=== PATIENT | male | born 1935 | race Caucasian/White ===

== ENCOUNTER 2017-10-12 02:34 | Inpatient (IN) | payer MEDICARE, OTHER ==
[~2017-10-12] VITALS: Ht 172.7 cm; Wt 120.0 kg
[~2017-10-12 02:34] MED LIST: CARB1CAP5 PO; ENTA200T5 PO; MELO-100 PO; MINE133E25 RC; RASA1TAB PO; SIMV10TA6 PO; SULF1TAB48 PO; SULF1TAB49 PO
[2017-10-12] MEDS ORDERED: MIRA50TA PO (03:05)
[2017-10-12] MEDS ORDERED: HYDR25TA4 PO (03:05)
[2017-10-12] MEDS ORDERED: METO-467 PO (03:05)
[2017-10-12] MEDS ORDERED: GABA600T2 PO (03:05)
[2017-10-12] MEDS ORDERED: CARB1CAP5 (03:05)
[2017-10-12] MEDS ORDERED: ENTA200T23 PO (03:05)
[2017-10-12] MEDS ORDERED: DICL50TA6 PO (03:05)
[2017-10-12] MEDS ORDERED: HYDR-3964 PO (03:05)
[2017-10-12] MEDS ORDERED: BACL10TA PO (03:05)
[2017-10-12 03:33] LABS: PROTHROMBIN TIME 10.1 SECONDS (9.0-12.0)
[2017-10-12 03:35] LABS: CLARITY,URINE SLIGHTLY CLOUDY (Clear); GLUCOSE, URINE NEGATIVE (Neg); KETONES,URINE 15 mg/dl (Neg); LEUKOCYTE ESTERASE ,URINE TRACE (Neg); NITRITES, URINE POSITIVE (Neg); OCCULT BLOOD,URINE NEGATIVE (Neg); PH,URINE 5.5 (4.8-8.0); PROTEIN,URINE 100 mg/dl (Neg); UROBILINOGEN,URINE 0.2 E.U/dL (0.2-1.0)
[2017-10-12 03:43] LABS: COLOR,URINE BROWN (Yellow); UA COLLECTION TYPE VOIDED
[2017-10-12 03:47] LABS: ALANINE AMINOTRANSFERASE 9 U/L (12-78); ALBUMIN 3.7 G/DL (3.4-5.0); ALBUMIN/GLOBULIN RATIO 0.9 (1.1-1.5); ALKALINE PHOSPHATASE 82 IU/L (46-116); ANION GAP 10 (8-16); ASPARTATE AMINO TRANSFERASE 20 U/L (10-37); BILIRUBIN,TOTAL 0.4 MG/DL (0.1-1.0); BLOOD UREA NITROGEN 33 MG/DL (7-18); CALCIUM 8.8 MG/DL (8.5-10.1); CHLORIDE 102 MMOL/L (99-107); CREATININE 1.65 MG/DL (0.60-1.10); GLUCOSE 120 MG/DL (70-104); POTASSIUM 3.7 MMOL/L (3.5-5.1); SODIUM 140 MMOL/L (135-145); TOTAL CARBON DIOXIDE 27.9 MMOL/L (24-32); TOTAL PROTEIN 7.7 G/DL (6.4-8.2); eGFR 40 ML/MIN
[2017-10-12 03:49] LABS: BASOPHILS % (AUTO) 0 % (0-1); EOSINOPHILS % (AUTO) 0.2 % (0-6); HEMATOCRIT 35.5 % (42.0-52.0); HEMOGLOBIN 11.7 g/dl (14.0-17.9); LYMPHOCYTES # (AUTO) 1.1 X10'3 (1.1-4.8); LYMPHOCYTES % (AUTO) 7.2 % (21-51); MEAN CORPUSCULAR HEMOGLOBIN 30.5 PG (27.0-31.0); MEAN CORPUSCULAR HGB CONC 32.8 % (33.0-36.5); MEAN CORPUSCULAR VOLUME 93.1 FL (78-98); MEAN PLATELET VOLUME 9.6 FL (7.4-10.4); MONOCYTES # (AUTO) 0.7 X10'3 (0-0.9); NEUTROPHILS # (AUTO) 13.2 X10'3 (1.8-7.7); NEUTROPHILS % (AUTO) 87.6 % (42-75); PLATELET COUNT 320 X10'3 (140-440); RED BLOOD COUNT 3.82 X10'6 (4.70-6.10); RED CELL DISTRIBUTION WIDTH 14.1 % (11.5-14.5)
[2017-10-12 04:21] LABS: BACTERIA,URINE 4+ /HPF (Neg); RBC,URINE 0-2 /HPF (0-2); SQUAMOUS EPITHELIAL CELL,UR FEW /LPF (FEW); WBC CLUMPS,URINE FEW /HPF (NEGATIVE)
[2017-10-12] MEDS ORDERED: morphine 4 MG/ML inj SYRINge IV PRN ×2 (05:55)
[2017-10-12] MEDS ORDERED: acetaminophen 325mg tablet PO PRN (05:55)
[2017-10-12] MEDS ORDERED: ondansetron/PF 4mg/2ml inj IV PRN (05:55)
[2017-10-12] MEDS ORDERED: mag hydrox/Alum hydrox/simeth 30ml oral suspension PO PRN (05:55)
[2017-10-12] MEDS ORDERED: magnesium hydroxide 30ml (MOM) UD suspension PO PRN (05:55)
[2017-10-12] MEDS: normal saline 1000ml 1,000 ML IV SCH ×2 (06:51→20:18)
[2017-10-12] MEDS: CefTRIAXone/D5W-Rocephin 1gm 50 ML IV SCH ×2 (06:51→08:00)
[2017-10-12] MEDS: baclofen 10mg tablet PO SCH ×3 (07:39→20:09)
[2017-10-12 07:58] LABS: OCCULT BLOOD STOOL POSITIVE (Neg)
[2017-10-12] MEDS ORDERED: MIRABEGRON 50 MG PO SCH (08:00)
[2017-10-12] MEDS: HYDROcodone/acetaminophen 5mg/325mg tablet PO PRN ×2 (08:14→16:03)
[2017-10-12] MEDS: metoprolol tartrate 50mg tablet PO SCH ×2 (08:14→20:08)
[2017-10-12] MEDS: gabapentin 300mg capsule PO SCH ×2 (08:15→15:44)
[2017-10-12] MEDS: LEVODOPA PO SCH ×3 (09:46→21:21)
[2017-10-12] MEDS: CARBIDOPA PO SCH ×3 (09:46→21:21)
[2017-10-12] MEDS: RASAGILINE 1 MG PO SCH (09:47)
[2017-10-12 10:21] LABS: C DIFF SPECIMEN=DIARRHEA? ACCEPTABLE; C DIFFICILE TOXINS A&B POSITIVE (Neg)
[2017-10-12 10:22] LABS: C DIFF ANTIGEN POSITIVE (NEGATIVE); C DIFF TOXIN (LAMP) POSITIVE (NEG)
[2017-10-12] MEDS ORDERED: ampicillin inj 1 GM in normal saline 100ml IV soln 100 ML IV SCH (14:00)
[2017-10-12 15:30] VITALS: BP 195/81
[2017-10-12] MEDS ORDERED: amLODIPine 5mg tablet PO ONE (15:35)
[2017-10-12] MEDS ORDERED: ALPRAZolam 0.25mg tablet PO ONE (15:35)
[2017-10-12] MEDS: metroNIDAZOLE-Flagyl 500mg/NS 100 ML IV SCH (15:45)
[2017-10-12 18:00] VITALS: BP 138/94
[2017-10-12] MEDS: atorvastatin 10mg tablet PO SCH (20:08)
[2017-10-12 22:00] VITALS: BP 142/70
[2017-10-13] MEDS: metroNIDAZOLE-Flagyl 500mg/NS 100 ML IV SCH ×4 (00:02→23:38)
[2017-10-13] MEDS: gabapentin 300mg capsule PO SCH ×4 (00:02→23:38)
[2017-10-13] MEDS: normal saline 1000ml 1,000 ML IV SCH ×2 (01:54→09:27)
[2017-10-13 06:00] VITALS: BP 177/75
[2017-10-13 06:22] LABS: BASOPHILS # (AUTO) 0.1 X10'3 (0-0.2); BASOPHILS % (AUTO) 1.3 % (0-1); EOSINOPHILS # (AUTO) 0.3 X10'3 (0-0.9); EOSINOPHILS % (AUTO) 3.3 % (0-6); HEMATOCRIT 34.5 % (42.0-52.0); HEMOGLOBIN 11.7 g/dl (14.0-17.9); LYMPHOCYTES # (AUTO) 1.7 X10'3 (1.1-4.8); LYMPHOCYTES % (AUTO) 18.4 % (21-51); MEAN CORPUSCULAR HEMOGLOBIN 31.2 PG (27.0-31.0); MEAN CORPUSCULAR HGB CONC 33.8 % (33.0-36.5); MEAN PLATELET VOLUME 9.7 FL (7.4-10.4); MONOCYTES # (AUTO) 0.8 X10'3 (0-0.9); MONOCYTES % (AUTO) 8.4 % (2-12); NEUTROPHILS # (AUTO) 6.2 X10'3 (1.8-7.7); NEUTROPHILS % (AUTO) 68.6 % (42-75); PLATELET COUNT 284 X10'3 (140-440); RED BLOOD COUNT 3.75 X10'6 (4.70-6.10); RED CELL DISTRIBUTION WIDTH 14.7 % (11.5-14.5); WHITE BLOOD COUNT 9.1 X10'3 (4.5-11.0)
[2017-10-13 06:57] LABS: ALANINE AMINOTRANSFERASE 7 U/L (12-78); ALBUMIN 2.9 G/DL (3.4-5.0); ALBUMIN/GLOBULIN RATIO 0.8 (1.1-1.5); ALKALINE PHOSPHATASE 69 IU/L (46-116); ANION GAP 6 (8-16); ASPARTATE AMINO TRANSFERASE 19 U/L (10-37); BILIRUBIN,TOTAL 0.4 MG/DL (0.1-1.0); BLOOD UREA NITROGEN 22 MG/DL (7-18); BUN/CREATININE RATIO 19.6 (5.4-32.0); CALCIUM 8.8 MG/DL (8.5-10.1); CHLORIDE 107 MMOL/L (99-107); CREATININE 1.12 MG/DL (0.60-1.10); GLUCOSE 110 MG/DL (70-104); POTASSIUM 3.9 MMOL/L (3.5-5.1); SODIUM 142 MMOL/L (135-145); TOTAL CARBON DIOXIDE 29.2 MMOL/L (24-32); TOTAL PROTEIN 6.4 G/DL (6.4-8.2); eGFR 63 ML/MIN
[2017-10-13] MEDS: metoprolol tartrate 50mg tablet PO SCH ×2 (09:25→19:39)
[2017-10-13] MEDS: baclofen 10mg tablet PO SCH ×2 (09:25→19:38)
[2017-10-13] MEDS: CARBIDOPA PO SCH ×3 (09:25→21:04)
[2017-10-13] MEDS: LEVODOPA PO SCH ×3 (09:25→21:04)
[2017-10-13 10:00] VITALS: BP 156/83
[2017-10-13] MEDS ORDERED: MIRABEGRON 50 MG PO SCH (14:04)
[2017-10-13] MEDS: RASAGILINE 1 MG PO SCH (14:17)
[2017-10-13 14:33] LABS: HEMOGLOBIN A1C 6.5 % (4.5-6.2)
[2017-10-13 18:00] VITALS: BP 126/80
[2017-10-13] MEDS ORDERED: MIRABEGRON 25 MG PO SCH (21:00)
[2017-10-13] MEDS: ciprofloxacin 250mg tablet PO SCH (21:03)
[2017-10-13] MEDS: atorvastatin 10mg tablet PO SCH (21:03)
[2017-10-13 22:00] VITALS: BP 123/53
[2017-10-14] MEDS: normal saline 1000ml 1,000 ML IV SCH ×2 (01:30→07:10)
[2017-10-14] MEDS: HYDROcodone/acetaminophen 5mg/325mg tablet PO PRN (03:51)
[2017-10-14 06:21] LABS: BASOPHILS # (AUTO) 0.1 X10'3 (0-0.2); BASOPHILS % (AUTO) 0.8 % (0-1); EOSINOPHILS # (AUTO) 0.4 X10'3 (0-0.9); EOSINOPHILS % (AUTO) 3.9 % (0-6); HEMATOCRIT 31.6 % (42.0-52.0); HEMOGLOBIN 10.4 g/dl (14.0-17.9); LYMPHOCYTES # (AUTO) 1.3 X10'3 (1.1-4.8); LYMPHOCYTES % (AUTO) 12.6 % (21-51); MEAN CORPUSCULAR HGB CONC 32.9 % (33.0-36.5); MEAN CORPUSCULAR VOLUME 91.2 FL (78-98); MEAN PLATELET VOLUME 9.5 FL (7.4-10.4); MONOCYTES % (AUTO) 9.5 % (2-12); NEUTROPHILS # (AUTO) 7.3 X10'3 (1.8-7.7); NEUTROPHILS % (AUTO) 73.2 % (42-75); PLATELET COUNT 256 X10'3 (140-440); RED BLOOD COUNT 3.46 X10'6 (4.70-6.10); RED CELL DISTRIBUTION WIDTH 15.1 % (11.5-14.5)
[2017-10-14 06:52] VITALS: BP 137/54
[2017-10-14 06:54] LABS: ALANINE AMINOTRANSFERASE 8 U/L (12-78); ALBUMIN 2.8 G/DL (3.4-5.0); ALBUMIN/GLOBULIN RATIO 0.9 (1.1-1.5); ALKALINE PHOSPHATASE 66 IU/L (46-116); ANION GAP 8 (8-16); ASPARTATE AMINO TRANSFERASE 19 U/L (10-37); BILIRUBIN,TOTAL 0.5 MG/DL (0.1-1.0); BLOOD UREA NITROGEN 20 MG/DL (7-18); CALCIUM 8.5 MG/DL (8.5-10.1); CHLORIDE 105 MMOL/L (99-107); CREATININE 1.11 MG/DL (0.60-1.10); GLUCOSE 105 MG/DL (70-104); POTASSIUM 3.6 MMOL/L (3.5-5.1); SODIUM 139 MMOL/L (135-145); TOTAL CARBON DIOXIDE 26.1 MMOL/L (24-32); eGFR 63 ML/MIN
[2017-10-14] MEDS: metroNIDAZOLE-Flagyl 500mg/NS 100 ML IV SCH (07:19)
[2017-10-14] MEDS: gabapentin 300mg capsule PO SCH (07:20)
[2017-10-14] MEDS: baclofen 10mg tablet PO SCH (07:20)
[2017-10-14] MEDS: CARBIDOPA PO SCH (07:20)
[2017-10-14] MEDS: metoprolol tartrate 50mg tablet PO SCH (07:20)
[2017-10-14] MEDS: RASAGILINE 1 MG PO SCH (07:20)
[2017-10-14] MEDS: LEVODOPA PO SCH (07:20)
[2017-10-14] MEDS ORDERED: METR500T4 PO (09:03)
[2017-10-14] MEDS ORDERED: CIPR250T4 PO (09:03)
[2017-10-14] MEDS: ciprofloxacin 250mg tablet PO SCH (10:20)
[2017-10-14 11:31] VITALS: BP 112/77
[2017-10-14] MEDS ORDERED: AMOX-580 PO (15:35)
== END 2017-10-14 11:30 | disposition home or self-care (01) | DRG 871 ==
LOC: ER 02:34 → ED HOLD 05:54 → EDBEDREQ 13:43 → ORTHO 4S 15:03
PROVIDERS: ADMIT Internal Medicine; ATTEND Internal Medicine
DX: A41.9 Sepsis, unspecified organism (principal); G93.41 Metabolic encephalopathy; N17.9 Acute kidney failure, unspecified; A04.72 Enterocolitis due to Clostridium difficile, not specified as recurrent; N39.0 Urinary tract infection, site not specified; Z68.41 Body mass index [BMI] 40.0-44.9, adult; G20 Parkinson's disease; E11.9 Type 2 diabetes mellitus without complications; N40.0 Benign prostatic hyperplasia without lower urinary tract symptoms; F41.9 Anxiety disorder, unspecified; G89.29 Other chronic pain; M54.5 Low back pain; Z90.49 Acquired absence of other specified parts of digestive tract; Z79.899 Other long term (current) drug therapy; Z79.4 Long term (current) use of insulin
CPT/HCPCS: 36415; 80053; 81001; 82272; 82948; 83036; 85025; 85610; 87045; 87046; 87070; 87077; 87088; 87186; 87324; 87449; 87493; 89055; 97116; 97161; 97530; 99285; J0290; J0696; J3490; J7030

== ENCOUNTER 2017-10-28 17:56 | Emergency (ER) | payer MEDICARE, OTHER ==
[~2017-10-28] VITALS: Ht 172.7 cm; Wt 110.0 kg
[~2017-10-28 17:56] MED LIST changes: +AMOX-580 PO; +BACL10TA PO; +ENTA200T23 PO; -ENTA200T5 PO; +GABA600T2 PO; +HYDR-3964 PO; -MELO-100 PO; +METO-467 PO; -MINE133E25 RC; -SULF1TAB48 PO; -SULF1TAB49 PO
[2017-10-28 18:32] VITALS: BP 203/89
[2017-10-28 18:54] LABS: BASOPHILS # (AUTO) 0.1 X10'3 (0-0.2); BASOPHILS % (AUTO) 1.2 % (0-1); EOSINOPHILS # (AUTO) 0.2 X10'3 (0-0.9); EOSINOPHILS % (AUTO) 2.3 % (0-6); HEMATOCRIT 36.7 % (42.0-52.0); HEMOGLOBIN 12.2 g/dl (14.0-17.9); LYMPHOCYTES # (AUTO) 1.9 X10'3 (1.1-4.8); MEAN CORPUSCULAR HEMOGLOBIN 30.7 PG (27.0-31.0); MEAN CORPUSCULAR HGB CONC 33.2 % (33.0-36.5); MEAN CORPUSCULAR VOLUME 92.4 FL (78-98); MONOCYTES # (AUTO) 0.9 X10'3 (0-0.9); MONOCYTES % (AUTO) 10.4 % (2-12); NEUTROPHILS # (AUTO) 5.5 X10'3 (1.8-7.7); NEUTROPHILS % (AUTO) 64.1 % (42-75); PLATELET COUNT 352 X10'3 (140-440); RED BLOOD COUNT 3.97 X10'6 (4.70-6.10); RED CELL DISTRIBUTION WIDTH 16.5 % (11.5-14.5); WHITE BLOOD COUNT 8.6 X10'3 (4.5-11.0)
[2017-10-28 19:02] LABS: PROTHROMBIN TIME 10.5 SECONDS (9.0-12.0)
[2017-10-28 19:05] LABS: CLARITY,URINE CLEAR (Clear); COLOR,URINE YELLOW (Yellow); GLUCOSE, URINE NEGATIVE (Neg); KETONES,URINE TRACE mg/dl (Neg); LEUKOCYTE ESTERASE ,URINE NEGATIVE (Neg); NITRITES, URINE NEGATIVE (Neg); OCCULT BLOOD,URINE NEGATIVE (Neg); PH,URINE 6.5 (4.8-8.0); PROTEIN,URINE 100 mg/dl (Neg); UROBILINOGEN,URINE 0.2 E.U/dL (0.2-1.0)
[2017-10-28] MEDS ORDERED: ondansetron/PF 4mg/2ml inj IV ONE (19:05)
[2017-10-28] MEDS ORDERED: morphine 4 MG/ML inj SYRINge IV ONE (19:05)
[2017-10-28 19:06] LABS: UA COLLECTION TYPE CLN CATCH MIDSTREAM
[2017-10-28 19:07] LABS: ALANINE AMINOTRANSFERASE 9 U/L (12-78); ALBUMIN 3.5 G/DL (3.4-5.0); ALBUMIN/GLOBULIN RATIO 0.9 (1.1-1.5); ALKALINE PHOSPHATASE 83 IU/L (46-116); ANION GAP 8 (8-16); ASPARTATE AMINO TRANSFERASE 18 U/L (10-37); BILIRUBIN,TOTAL 0.3 MG/DL (0.1-1.0); BLOOD UREA NITROGEN 22 MG/DL (7-18); BUN/CREATININE RATIO 20.8 (5.4-32.0); CALCIUM 8.7 MG/DL (8.5-10.1); CHLORIDE 103 MMOL/L (99-107); CREATININE 1.06 MG/DL (0.60-1.10); GLUCOSE 119 MG/DL (70-104); POTASSIUM 4.2 MMOL/L (3.5-5.1); SODIUM 141 MMOL/L (135-145); TOTAL PROTEIN 7.5 G/DL (6.4-8.2); eGFR 67 ML/MIN
[2017-10-28 19:25] LABS: BACTERIA,URINE NONE SEEN /HPF (Neg); MUCUS STRANDS MODERATE /LPF (Neg); RBC,URINE 0-2 /HPF (0-2); SQUAMOUS EPITHELIAL CELL,UR FEW /LPF (FEW); WBC,URINE 0-4 /HPF (0-4)
[2017-10-28] MEDS ORDERED: CARB1CAP5 (20:36)
[2017-10-28] MEDS ORDERED: carbidopa/levodopa 25/100mg CR tablet PO SCH (21:00)
[2017-10-28] MEDS ORDERED: VANC125C4 PO (21:28)
== END 2017-10-28 22:16 | disposition home or self-care (01) ==
LOC: ER 17:56
DX: A04.72 Enterocolitis due to Clostridium difficile, not specified as recurrent (principal); E11.9 Type 2 diabetes mellitus without complications; G89.29 Other chronic pain; Z98.890 Other specified postprocedural states; Z85.9 Personal history of malignant neoplasm, unspecified; Z79.899 Other long term (current) drug therapy
CPT/HCPCS: 36415; 80053; 81001; 85025; 85610; 96374; 96375; 99284; J2270; J2405

== ENCOUNTER 2018-01-18 06:58 | Emergency (ER) | payer MEDICARE, OTHER ==
[~2018-01-18] VITALS: Ht 172.7 cm; Wt 95.4 kg
[~2018-01-18 06:58] MED LIST changes: -AMOX-580 PO; +CARB1CAP5; -CARB1CAP5 PO
[2018-01-18] MEDS ORDERED: HYDROcodone/acetaminophen 10/325mg tab PO ONE (07:50)
[2018-01-18] MEDS ORDERED: gabapentin 300mg capsule PO ONE (07:50)
[2018-01-18 07:57] VITALS: BP 179/68
== END 2018-01-18 08:10 | disposition home or self-care (01) ==
LOC: ER 06:58
DX: G89.29 Other chronic pain (principal); M79.605 Pain in left leg; M79.604 Pain in right leg; G20 Parkinson's disease; E11.9 Type 2 diabetes mellitus without complications; M54.9 Dorsalgia, unspecified; Z90.89 Acquired absence of other organs
CPT/HCPCS: 99284

== ENCOUNTER 2018-08-03 12:34 | Day surgery (SDC) | payer MEDICARE, OTHER ==
[2018-08-03] VITALS (9 sets, daily range): BP systolic 133–190; BP diastolic 69–82
[~2018-08-03 12:34] MED LIST changes: +GABA600T13 PO; -GABA600T2 PO
[2018-08-03] MEDS ORDERED: MAGN400C PO (13:13)
[2018-08-03] MEDS ORDERED: OMEP40CA37 PO (13:13)
[2018-08-03] MEDS ORDERED: midazolam 2 mg/2 ml injection ONE (13:26)
[2018-08-03] MEDS ORDERED: fentaNYL/PF 50MCG/1 ML 2ML syringe ONE (13:26)
[2018-08-03 13:49] LABS: BASOPHILS # (AUTO) 0.1 X10'3 (0-0.2); BASOPHILS % (AUTO) 0.7 % (0-1); EOSINOPHILS # (AUTO) 0.2 X10'3 (0-0.9); EOSINOPHILS % (AUTO) 2.1 % (0-6); HEMATOCRIT 31.5 % (42.0-52.0); HEMOGLOBIN 10.6 g/dl (14.0-17.9); LYMPHOCYTES # (AUTO) 1.8 X10'3 (1.1-4.8); LYMPHOCYTES % (AUTO) 17.6 % (21-51); MEAN CORPUSCULAR HEMOGLOBIN 31.7 PG (27.0-31.0); MEAN CORPUSCULAR HGB CONC 33.7 g/dL (33.0-36.5); MEAN PLATELET VOLUME 8.7 FL (7.4-10.4); MONOCYTES % (AUTO) 9.8 % (2-12); NEUTROPHILS # (AUTO) 7.1 X10'3 (1.8-7.7); NEUTROPHILS % (AUTO) 69.8 % (42-75); PLATELET COUNT 285 X10'3 (140-440); RED BLOOD COUNT 3.35 X10'6 (4.70-6.10); RED CELL DISTRIBUTION WIDTH 14.5 % (11.5-14.5); WHITE BLOOD COUNT 10.2 X10'3 (4.5-11.0)
[2018-08-03] MEDS ORDERED: LIDOcaine 1% (10mg/ml)w/preservative injection 20ml MDV ONE (13:56)
[2018-08-03] MEDS ORDERED: iohexol 350MG/ML 100ml bottle IV ONE ×2 (13:56→14:28)
[2018-08-03] MEDS ORDERED: iohexol 350 MG/ML 50ML vial IV ONE (13:56)
[2018-08-03 14:13] LABS: PROTHROMBIN TIME 10.2 SECONDS (9.0-12.0)
[2018-08-03 14:24] LABS: ALBUMIN 3.4 G/DL (3.4-5.0); ANION GAP 6 (8-16); BLOOD UREA NITROGEN 35 MG/DL (7-18); BUN/CREATININE RATIO 22.6 (5.4-32.0); CALCIUM 9.2 MG/DL (8.5-10.1); CHLORIDE 104 MMOL/L (99-107); CREATININE 1.55 MG/DL (0.60-1.10); GLUCOSE 97 MG/DL (70-104); MAGNESIUM 2.2 MG/DL (1.5-2.4); POTASSIUM 4.4 MMOL/L (3.5-5.1); SODIUM 138 MMOL/L (135-145); TOTAL CARBON DIOXIDE 27.7 MMOL/L (24-32); eGFR 43 ML/MIN
[2018-08-03] MEDS ORDERED: heparin 1,000unit/ml 10ml vial 10 ML ONE (14:25)
[2018-08-03] MEDS ORDERED: nitroGLYCERIN-Tridil 50MG/D5W 250 ML IV ONE (14:39)
[2018-08-03] MEDS ORDERED: clopidogrel 300mg tablet ONE (14:47)
[2018-08-03] MEDS ORDERED: normal saline 1000ml 1,000 ML IV SCH ×2 (15:25→19:30)
[2018-08-03] MEDS ORDERED: HYDROcodone/acetaminophen 5mg/325mg tablet PO ONE (15:50)
[2018-08-03] MEDS ORDERED: gabapentin 300mg capsule PO ONE (15:52)
== END 2018-08-03 18:55 | disposition home or self-care (01) ==
LOC: SSTAY O 12:34
PROVIDERS: ATTEND Internal Medicine Cardiovascular Disease
DX: I25.10 Atherosclerotic heart disease of native coronary artery without angina pectoris (principal)
CPT/HCPCS: 36415; 80048; 83735; 85025; 85610; 93005; 93458; 99152; 99153; A6257; C1874; C9600; C9601; J1644; J2001; J2250; J3010; Q9967; A4620; C1725; C1769; C1894; J3490